=== PATIENT | male | born 1965 | race Caucasian/White ===

== ENCOUNTER 2017-01-01 05:35 | Day surgery (SDC) | payer OTHER ==
[~2017-01-01] VITALS: Ht 188 cm; Wt 106.6 kg
[2017-01-01] MEDS ORDERED: OXYCODONE HCL5 M1 PO (08:08)
--- NOTE | 2017-01-01 11:28 | NUR ---
[facility]17 [facility]128 [facility] 6L.
--- NOTE | 2017-01-01 12:12 | NUR ---
LE 1150: ICED WATER GIVEN. TRANSPORT OFFICERS @ BS.
[2017-01-01] MEDS ORDERED: NORCO 10-325 T1 EACH PO (13:11)
--- NOTE | 2017-01-01 13:37 | NUR ---
4120-DISCHARGE INSTRUCTIONS REVIEWED WITH PATIENT, VERBALIZED UNDERSTANDING. GUARDS AT BEDSIDE. PATIENT DISCHARGED BACK TO [facility] WITH GUARDS. IV REMOVED TIP INTACT.
--- NOTE | 2017-01-01 16:16 | OR ---
[facility] [address] [place], [place] [address] Signed DATE OF PROCEDURE: 01/01/17 PREOPERATIVE DIAGNOSES Partial thickness rotator cuff tear, left shoulder with impingement and acromioclavicular joint arthrosis. POSTOPERATIVE DIAGNOSES Partial thickness rotator cuff tear, left shoulder with impingement and acromioclavicular joint arthrosis. PROCEDURE Shoulder arthroscopy with debridement of partial-thickness rotator cuff tear followed by subacromial decompression and arthroscopic Deshawn procedure. SURGEON: Manoj Mccloud M.D. ANESTHESIA: General. SPECIMENS AND COMPLICATIONS: There were no specimens or complications. TOURNIQUET: Was not used. BLOOD LOSS: Minimal. PROCEDURE The patient taken the operating room. After anesthesia was induced, airway secured, the patient was positioned, prepped and draped in a routine sterile fashion. The bony topography was outlined with a skin marking pen. The arthroscope was then inserted through the standard posterior portal. Diagnostic arthroscopy of the shoulder joint itself revealed an unremarkable humeral head and unremarkable glenoid. There was some fraying of the anterior labrum. An anterior portal was made using a switching stick technique and a probe was introduced. The biceps anchor was intact. There was some mild articular surface fraying of the supraspinatus, but no full-thickness tear. The VAPR electrosurgical device was then introduced through the anterior portal. We debrided the fraying of the labrum and the partial-thickness cuff tear. We then maneuvered the scope into the subacromial space where there was a rather dense bursitis. An auxiliary lateral portal was created and through it we introduced the VAPR electrosurgical device. A subacromial bursectomy was performed and interestingly there was no identifiable change on the bursal side of the rotator cuff. We then used the VAPR to remove the soft tissue off the undersurface of the anterior and lateral acromion going medially to the AC joint and then about a cm medial to the AC joint. We then introduced a 4 mm dilan through the lateral portal and did a generous subacromial decompression. We then co-planed the Electronically Signed By: MANOJ MCCLOUD MD 01/01/17 1616 PATIENT NAME: PRASAD CHURCHILL OPERATIVE REPORT DATE OF : 65 PHYSICIAN: MANOJ MCCLOUD MD REPORT #: [id number] REPORT IS CONFIDENTIAL AND NOT TO BE RELEASED WITHOUT AUTHORIZATION [address] [address] Signed undersurface of the distal clavicle with a subacromial resection. We then redirected the anterior portal into the AC joint and again introduced the VAPR to remove the remaining soft tissue in the AC joint and then introduced the dilan through the anterior portal to a complete of the resection of the distal clavicle. This port appeared to have an excellent decompression of the rotator cuff. The subacromial space was irrigated and drained. The portals were closed and the sterile dressings applied. The patient placed in a sling, awakened, taken to the recovery room where he arrived in stable condition. Counts were correct and antibiotic protocols were followed. MD LIZBETH Sarmiento/Nida /[id number] cc: Estiven Hadley MD Electronically Signed By: MANOJ MCCLOUD MD 01/01/17 1616 PATIENT NAME: CHONG CHURCHILLICK OPERATIVE REPORT DATE OF : 65 PHYSICIAN: MANOJ MCCLOUD MD REPORT #: [id number] REPORT IS CONFIDENTIAL AND NOT TO BE RELEASED WITHOUT AUTHORIZATION
--- NOTE | 2017-01-01 21:44 | EKG ---
[facility] [address] [facility] [place], [place] [address] Signed Sinus bradycardia Otherwise normal ECG No previous ECGs available Confirmed by VERA SIMS MD ([id number]) on 01/01/2017 9:44:25 PM Electronically Signed By: VERA SIMS MD 01/01/17 2144 PATIENT NAME: PRASAD CHURCHILL Electrocardiogram DATE OF : 65 PHYSICIAN: VERA SIMS MD REPORT #: [id number] REPORT IS CONFIDENTIAL AND NOT TO BE RELEASED WITHOUT AUTHORIZATION
== END 2017-01-01 13:40 | disposition home or self-care (01) ==
LOC: DS 05:35
PROVIDERS: Orthopaedic Surgery
PROC: 0RNK4ZZ Release Left Shoulder Joint, Percutaneous Endoscopic Approach (ICD-10-PCS; 2017-01-01)
PROC: 0PBB4ZZ Excision of Left Clavicle, Percutaneous Endoscopic Approach (ICD-10-PCS; 2017-01-01)
PROC: 0LB24ZZ Excision of Left Shoulder Tendon, Percutaneous Endoscopic Approach (ICD-10-PCS; principal; 2017-01-01 11:15)
DX: M75.112 Incomplete rotator cuff tear or rupture of left shoulder, not specified as traumatic (principal); M19.012 Primary osteoarthritis, left shoulder; M25.812 Other specified joint disorders, left shoulder
CPT/HCPCS: 01630; 36415; 64415; 76942; 80053; 85025; 93005; 93010; J0330; J0690; J1100; J1885; J2250; J2405; J2704; J2795; J3010; J7120